=== PATIENT | female | born 1980 | race Caucasian/White ===

== ENCOUNTER → 2023-10-10 12:08 | Outpatient (CLI) | payer OTHER, MEDICAID, SELFPAY ==
--- NOTE | 2023-10-10 12:10 | DI.US.S_ITS ---
PROCEDURE: US PELVIC COMPLETE INDICATIONS: DUB TECHNIQUE: Real-time scanning was performed of the pelvic organs, with image documentation. Additional endovaginal scanning was necessary due to incomplete visualization of the adnexal and endometrial structures by transabdominal scanning. COMPARISON: None. FINDINGS: Uterus: Uterus is anteverted and normal in size at 11.3 x 7.4 x 4.3 cm. The myometrium is homogeneous. The endometrium measures 14 mm combined thickness. Arcuate uterine morphology. Ovaries: The right ovary measures 3.9 x 2.6 x 2.1 cm, with a calculated ovarian volume of 11.1 cc. Dominant right ovarian cyst measuring 1.5 cm. The left ovary measures 4.3 x 2.4 x 1.5 cm, with a calculated ovarian volume of 8.1 cc. The ovaries have a normal sonographic appearance. Less than 12 follicles can be seen in each ovary. No adnexal masses are seen. Other: No pathologic free abdominal or pelvic fluid. IMPRESSION: Arcuate uterine morphology. Normal appearance of the ovaries. We strive to produce accurate, complete, and clear reports of imaging services. To assist us in improving patient care, this report was composed using standard report templates and voice recognition software. Therefore, it may contain abnormal punctuation, insertions and/or omissions. Occasional wrong-word or sound-alike substitutions may occur. Though we review the report and make efforts to correct it, we do recommend that the report be read carefully in proper context to recognize any text inaccuracies. Dictated by: Wade Hudson M.D. on 10/10/2023 at 15:38 Approved by: Wade Hudson M.D. on 10/10/2023 at 15:40
== END ==
LOC: US 12:09
PROVIDERS: Referring Provider Obstetrics & Gynecology; Visit Provider Obstetrics & Gynecology
DX: N92.6 Irregular menstruation, unspecified (principal); Q51.810 Arcuate uterus
CPT/HCPCS: 76830; 76856

== ENCOUNTER 2023-12-29 08:04 | Day surgery (SDC) | payer OTHER, MEDICAID, SELFPAY ==
[2023-12-27 08:33] VITALS: BMI 33.4
[2023-12-29] VITALS (10 sets, daily range): BP systolic 107–153; BP diastolic 55–93; PULSE 69–88; RESP 12–18; TEMP 36.1–36.7; O2SAT 96–99; BMI 33.4
--- NOTE | 2023-12-29 | PATH_ITS ---
[facility] Accession Number: [id number] No. of containers..01 Tissue . 01 Material submitted: . uterus - UTERUS, CERVIX, FALLOPIAN TUBES AND OVARIES . 01 Diagnosis: UTERUS, CERVIX, AND FALLOPIAN TUBES, HYSTERECTOMY AND BILATERAL SALPINGECTOMY: Cervix: Nabothian cysts. Endometrium: Endometrial polyp and background secretory endometrium. Serosa: No significant pathologic abnormalities. Myometrium: No significant pathologic abnormalities. Fallopian tubes: No significant pathologic abnormaliies. [facility] 01/03/2024 1605 Local . 01 Comment: Jacquard Fixer sections of the endometrium are also reviewed by Dr. Anita Gardner, who concurs with the given interpretation. . 01 Electronically signed: . Clarita Khanna MD, Pathologist NPI- [id number] . 01 Gross description: . Received in formalin with two identifiers and uterus, cervix, and bilateral fallopian tubes, is an intact uterus (216 grams, 11.6 cm from superior to inferior, 8.2 cm from medial to lateral, 5.9 cm from anterior to posterior), with attached cervix (3.7 x 3.5 cm), and two unoriented, detached, fimbriated fallopian tubes (6.7 x 0.8 cm and 5.9 x 0.7 cm), with no additional adnexa. . The ectocervix is pink-olivo, smooth, and glistening with a patulous os measuring 0.7 cm in diameter. A long purple suture is located at approximately 10 o'clock with no designation per the requisition. The entire paracervical margin is inked blue, while the posterior paracervical margin is inked black. . The serosa is violaceous and smooth with no pinpoint hemorrhage identified. The endocervical canal measures 3.6 cm in length and has olivo herringbone mucosa. The endometrial cavity measures 3.3 cm from cornu to cornu, and 6.1 cm in length with pink-red, velvety endometrium that averages 0.1 cm thick with a polypoid nodule measuring 0.5 x 0.4 x 0.3 cm. . The myometrium is pink-olivo and trabecular measuring up to 2.4 cm in maximum thickness with no nodules or lesions identified. . Both tubes have violaceous, smooth serosa with no cysts identified, and sectioning reveals unremarkable stellate lumen. . Jacquard Fixer sections are submitted as follows: A1: Anterior cervix. A2: Posterior cervix. A3: Anterior full thickness section. A4: Posterior full thickness section. A5: Serosa. A6: Longer fallopian tube to include one-half of bisected fimbriae and cross-sections. A7: [place] fallopian tube to include one-half of bisected fimbriae and cross-sections. ([id number]) /GRETCHEN 12/30/2023 1004 Local . 01 Pathologist provided ICD-10: N92.0, N88.2 . 01 CPT . 848013 Specimen Comment: A courtesy copy of this report has been sent to [phone] Performed at: 01 [facility] [address] [place] [address], [place], [place] [id number] MD Chevy Blanco MD Phone: [phone]
[2023-12-29] MEDS: LACTATED RINGERS 1,000 ML 42 ML IV (08:38)
[2023-12-29] MEDS: ACETAMINOPHEN IV 1,000 MG/100 ML VIAL 400 MG IV (08:40)
[2023-12-29] MEDS: SCOPOLAMINE 1 PATCH TOP (08:41)
--- NOTE | 2023-12-29 10:13 | PM.PREOP ---
Pre-operative Note COVID-19 COVID-19 status: Not tested Interval Note History & Physical reviewed/Exam performed by Physician: Yes Changes to H&P: No
[2023-12-29 10:16] LABS: Hematocrit 33.9 % (36-46); Hemoglobin 10.6 g/dL (12.0-16.0); Mean Corpuscular HGB Conc 31.4 % (30-36); Mean Corpuscular Hemoglobin 23.4 PG (26-34); Mean Corpuscular Volume 74.7 fL (80-100); Platelet Count 392 X10^3/uL (150-400); Red Blood Cell Count 4.54 X10^6/uL (4.0-5.2); Red Cell Distribution Width 16.4 % (11.6-14.8); White Blood Cell Count 6.3 X10^3/uL (4.5-11.0)
[2023-12-29] MEDS: CEFAZOLIN VIAL 2 GM in SODIUM CHLORIDE 0.9% 100 ML IV (10:51)
--- NOTE | 2023-12-29 11:06 | SUR.OPER ---
Lithotomy on padded OR bed. Kenel Pad Positioner under torso. Head on pillow, arms padded and tucked at sides. Legs secured in padded yellow fins stirrups.
[2023-12-29] MEDS: BUPIVACAINE 0.5% (PF) 30 ML, EPINEPHrine 0.15 MG INJ (11:28)
--- NOTE | 2023-12-29 12:43 | P.OP_ITS ---
Operative Date/Time/Diagnoses Date of procedure: 12/29/23 Time of procedure: 11:05 Pre-op diagnosis: Menorrhagia Anemia due to chronic blood loss History of endometrial atypia Post-op diagnosis: same Procedure & Clinicians Procedure: Procedures Operation Date: 12/29/23 09:45 Actual Procedure Side Surgeon p Laparoscopic Total Hysterectomy with bilateral salpingectomy Not Applicable Nabeel Vieira MD Indications: Valerie is a 43-year-old 2 para 1, LMP 11/16/2023 who presents for evaluation of progressively severe menorrhagia in referral from Dr. Yamile Hines. Valerie experienced menarche at age 15 and has never had regular menses. Despite having irregular menses, she has conceived twice spontaneously and had 1 spontaneous vaginal . In 2019 however she underwent gastric sleeve surgery and after losing 100 lb or so her menses have become regular since then. Unfortunately while they are regular, they are extremely heavy with the least 5 days of flow in the 1st 1, 2 and sometimes 3 days are extremely heavy requiring both tampons and pads which sometimes have to be changed out as frequently as every 30-60 minutes. 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 She also takes in is much dietary iron as she can on a daily basis. Her most recent hemoglobin and hematocrit was not to the point where another iron infusion was required but was in the mildly anemic range. Patient in 2015 underwent hysteroscopy with polypectomy by Dr. Osei Roque. 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 Patient was subsequently placed on medroxyprogesterone by Dr. Roque and underwent endometrial sampling up until about 2018. All endometrial sampling was unremarkable but those records are not available for review at this time. She has not had repeat endometrial sampling since coming off medroxyprogesterone acetate in 2018 or 2019. Patient's most recent Pap was 2 months ago which was normal. She does have a history of having HPV in the past and underwent colp oscopy in 2004. Apparently she has had no further abnormals or treatment of her Paps since that time. Family history is notable for a maternal grandmother with colon cancer and a maternal cousin with breast cancer. Recent pelvic ultrasound performed 10/10/2023 at [facility] shows: FINDINGS: Uterus: Uterus is anteverted and normal in size at 11.3 x 7.4 x 4.3 cm. The myometrium is homogeneous. The endometrium measures 14 mm combined thickness. Arcuate uterine morphology. Ovaries: The right ovary measures 3.9 x 2.6 x 2.1 cm, with a calculated ovarian volume of 11.1 cc. Dominant right ovarian cyst measuring 1.5 cm. The left ovary measures 4.3 x 2.4 x 1.5 cm, with a calculated ovarian volume of 8.1 cc. The ovaries have a normal sonographic appearance. Less than 12 follicles can be seen in each ovary. No adnexal masses are seen. Other: No pathologic free abdominal or pelvic fluid. IMPRESSION: Arcuate uterine morphology. Normal appearance of the ovaries. We had an extended discussion regarding potential causes of her menorrhagia as well as various options for treatment/mitigation of her symptoms. Included in those possibilities was continuous oral contraceptives, insertion of a Mirena IUD, endometrial ablation, and hysterectomy. The patient is averse to oral contraceptive use as well as progestin secreting IUD. She is open to endometrial ablation but upon learning that no assurance can be made that amenorrhea will be achieved, would prefer very much to move forward with hysterectomy as this has been a longstanding problem and she is concerned that the mild abnormalities noted in 2016 may over time lead to endometrial cancer. Given her clinical history I concur with her decision to move forward with hysterectomy and she presents today for her scheduled procedure. Surgeon: Nabeel Vieira Anesthesia Type: General Operative Notes Findings: Upper limits normal size uterus. Normal-appearing fallopian tubes. Normal ovaries bilaterally. Both the anterior and posterior cul-de-sac free abnormalities or adhesions. There is slight prominence of the left ovarian veins. The upper abdomen and the remainder of the abdominal cavity are normal to laparoscopic inspection. Closure Type: primary Specimen(s): left tube, right tube and uterus Applied: catheter Estimated blood loss (mL): 75 Blood products transfused: none Procedure in detail: With the patient in modified dorsal lithotomy position preparations were made by prepping and draping the patient in usual manner for vaginal surgery and insertion of Lomax catheter. A pre-surgical time-out was then taken in accordance with [facility] Main OR policy. A bivalve speculum was then placed in the vagina and the cervix visualized. The anterior lip of the cervix was then grasped with a single-tooth tenaculum. The uterus was sounded to 9 cm, the endocervical canal dilated slightly, and a VCare uterine manipulator with a large colpotomy cup was placed. The umbilicus was then infiltrated with 0.5% Marcaine with epinephrine. A 1 cm umbilical incision was made transversely and a Veress needle was used to insufflate the abdominal cavity with carbon dioxide. Once the abdomen was appropriately insufflated, a 5 mm trocar and sleeve were then placed through the umbilical incision. The scope was placed through the trocar and the initial assessment of the intra-abdominal contents carried out. A 2nd and 3rd 5 mm port was then placed 1st in the right mid quadrant from then the left mid quadrant by infiltration of the skin and subcutaneous tissues, a 1 cm transverse incision and insertion of the 5 mm bladeless port. Using a 3 puncture technique, the abdomen and pelvis were inspected laparoscopy and photographically documented. Uterus is mobilized with the VCare manipulator and attention turned to the left adnexa. The distal tube was then grasped and the fimbria varicose divided after coagulation with the PowerSeal device. The dissection was then carried out toward the cornua and the fallopian tube amputated. The tube was removed through a 5 mm port and dissection was then carried down using the PowerSeal device so as to divide the utero-ovarian ligament and the round ligament with blunt and sharp dissection of the broad down to the level of the uterine artery. The uterine artery was then skeletonized after development of a bladder flap, coagulated, and divided. Once hemostasis was assured on the left side attention was turned to the right and the tube, utero-ovarian ligament, round ligament, and broad ligament were dissected in a fashion exactly the same as it had been on the left. The right uterine artery was then visualized after skeletonization and coagulated and divided. The uterus was seen to yessy after coagulation of both your arteries and the cup was identified through the vaginal muscularis at its insertion with the body of the cervix. Circumferential excision of the vaginal cup was accomplished without difficulty using monopolar current and the uterus mobilized. The uterus was then removed through the vagina and the vaginal cuff closed [id number] with a series of 0 Vicryl [id number] stitches. Hemostasis was excellent, the abdomen was re-insufflated, and the pelvis inspected laparoscopically. The pelvis was inspected for any abnormality or bleeding, and the ureters were each seen to be peristalsing freely. With complete hemostasis assured, the pneumoperitoneum was vented and the ports removed. All of the 5 mm ports were then closed with 4-0 Monocryl on the skin using inverted interrupted sutures. Skin glue was placed and after the glue was dried, an appropriate dressing was applied. The case was then terminated, the patient awakened, and then transferred to PACU after having tolerated the procedure well. Complications: none Post-operative Condition: stable Disposition: PACU Plan for aftercare: Recovery in ambulatory surgery in discharge home later today if pain is under control and she is tolerating oral intake well.
[2023-12-29] MEDS: OXYCODONE IR 5 MG TABLET PO ×4 (12:55→23:52)
[2023-12-29] MEDS: KETOROLAC 30 MG/ML VIAL IV ×2 (13:42→21:11)
[2023-12-29] MEDS: LACTATED RINGERS 1,000 ML 100 ML IV ×2 (13:42→23:53)
[2023-12-29] MEDS: ACETAMINOPHEN 325 MG TABLET 650 MG PO ×2 (17:30→23:52)
[2023-12-30] VITALS: BP 120/63; PULSE 83; RESP 17; TEMP 36.6; O2SAT 96
[2023-12-30] MEDS: KETOROLAC 30 MG/ML VIAL IV ×2 (01:15→06:28)
[2023-12-30] MEDS: OXYCODONE IR 5 MG TABLET PO ×2 (03:02→08:30)
[2023-12-30] MEDS: HYDROMORPHONE 1 MG INJ IV (04:20)
[2023-12-30 06:00] VITALS: BP 126/68; PULSE 78; RESP 17; TEMP 36.4; O2SAT 98
[2023-12-30 06:27] LABS: Add Manual Diff / Slide Review NO; Basophils Absolute Auto 0 /uL (0-100); Basophils Percent Auto 0.4 % (0-2); Eosinophils Absolute Auto 0 /uL (0-450); Eosinophils Percent Auto 0.1 % (2-4); Hemoglobin 9.2 g/dL (12.0-16.0); Lymphocytes Absolute Auto 1700 /uL (1100-4500); Lymphocytes Percent Auto 14.3 % (25-40); Mean Corpuscular HGB Conc 30.6 % (30-36); Monocytes Absolute Auto 1300 /uL (0-900); Monocytes Percent Auto 11.1 % (3-14); Neutrophils Absolute Auto 8900 /uL (1500-7000); Neutrophils Percent Auto 74.1 % (50-75); Platelet Count 334 X10^3/uL (150-400); Red Cell Distribution Width 16.7 % (11.6-14.8)
[2023-12-30] MEDS: ACETAMINOPHEN 325 MG TABLET 650 MG PO (06:28)
[2023-12-30 08:07] VITALS: BP 141/79; PULSE 73; RESP 18; TEMP 36.6; O2SAT 96
[2023-12-30] MEDS: SERTRALINE 50 MG TABLET 100 MG PO (08:30)
--- NOTE | 2023-12-30 10:26 | P.DS_ITS ---
History of Present Illness History of Present Illness Date Patient Seen: 12/30/23 Time Patient Seen: 09:46 Chief complaint: Total lap hysterectomy w/tabitha salpingectomy *OPB* Narrative: Valerie is a 43-year-old 2 para 1, LMP 11/16/2023 who presents for evaluation of progressively severe menorrhagia in referral from Dr. Yamile Hines. Valerie experienced menarche at age 15 and has never had regular menses. Despite having irregular menses, she has conceived twice spontaneously and had 1 spontaneous vaginal . In 2019 however she underwent gastric sleeve surgery and after losing 100 lb or so her menses have become regular since then. Unfortunately while they are regular, they are extremely heavy with the least 5 days of flow in the 1st 1, 2 and sometimes 3 days are extremely heavy requiring both tampons and pads which sometimes have to be changed out as frequently as every 30-60 minutes. 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 She also takes in is much dietary iron as she can on a daily basis. Her most recent hemoglobin and hematocrit was not to the point where another iron infusion was required but was in the mildly anemic range. Patient in 2015 underwent hysteroscopy with polypectomy by Dr. Osei Roque. 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 Patient was subsequently placed on medroxyprogesterone by Dr. Roque and underwent endometrial sampling up until about 2018. All endometrial sampling was unremarkable but those records are not available for review at this time. She has not had repeat endometrial sampling since coming off medroxyprogesterone acetate in 2018 or 2019. Patient's most recent Pap was 2 months ago which was normal. She does have a history of having HPV in the past and underwent colposcopy in 2004. Apparently she has had no further abnormals or treatment of her Paps since that time. Family history is notable for a maternal grandmother with colon cancer and a maternal cousin with breast cancer. Recent pelvic ultrasound performed 10/10/2023 at [facility] shows: FINDINGS: Uterus: Uterus is anteverted and normal in size at 11.3 x 7.4 x 4.3 cm. The myometrium is homogeneous. The endometrium measures 14 mm combined thickness. Arcuate uterine morphology. Ovaries: The right ovary measures 3.9 x 2.6 x 2.1 cm, with a calculated ovarian volume of 11.1 cc. Dominant right ovarian cyst measuring 1.5 cm. The left ovary measures 4.3 x 2.4 x 1.5 cm, with a calculated ovarian volume of 8.1 cc. The ovaries have a normal sonographic appearance. Less than 12 follicles can be seen in each ovary. No adnexal masses are seen. Other: No pathologic free abdominal or pelvic fluid. IMPRESSION: Arcuate uterine morphology. Normal appearance of the ovaries. We had an extended discussion regarding potential causes of her menorrhagia as well as various options for treatment/mitigation of her symptoms. Included in those possibilities was continuous oral contraceptives, insertion of a Mirena IUD, endometrial ablation, and hysterectomy. The patient is averse to oral contraceptive use as well as progestin secreting IUD. She is open to endometrial ablation but upon learning that no assurance can be made that amenorrhea will be achieved, would prefer very much to move forward with hysterectomy as this has been a longstanding problem and she is concerned that the mild abnormalities noted in 2016 may over time lead to endometrial cancer. Given her clinical history I concur with her decision to move forward with hysterectomy and she presents today for her scheduled procedure. Discharge Providers Provider Date of admission: 12/29/2023 Discharge Date: 12/30/23 Discharge provider: Nabeel Vieira MD Summary Hospital Course Discharge Diagnosis: Intractable menometrorrhagia Anemia due to chronic blood loss History of endometrial atypia Hospital Course: On 12/29/2023, Valerie was admitted for scheduled total laparoscopic hysterectomy with bilateral salpingectomy. She underwent that uneventful procedure on 12/29/2023 with full details of the procedure well summarized on my operative note of that date. Following her surgery, the patient has done extremely well with prompt return of bowel and bladder function, she is ambulating independently, tolerating regular diet, and her pain is well controlled with oral pain medications. She will be discharged at this time to home in an afebrile normotensive condition after counseling regarding precautionary symptoms, limitations of activity, medications, and plans for follow-up which will be in 2 weeks. Medications at discharge will include resumption of all preadmission medications as well as oxycodone 5 mg p.o. q.6 hours as needed for pain, dispense 20 with no refills, and Cipro 500 mg p.o. b.i.d. x5 days for UTI prophylaxis following catheterization. Status at Discharge Cognitive/behavioral status at discharge: oriented Functional status at discharge: independent ambulation Overall status at discharge: patient is progressing back to baseline Time Spent with Patient Time spent: Less than 30 minutes Exam Vital Signs (past 8 hours): - 12/30/23 06:00 12/30/23 08:07 Temperature 97.6 F 97.8 F Pulse Rate 78 73 Respiratory Rate 17 18 Blood Pressure 126/68 141/79 H Pulse Oximetry 98 96 Oxygen Flow Rate 0 0 Oxygen Delivery Method Room Air Oxygen Flow Rate 0 Const General: cooperative and comfortable Nutritional Appearance: average body habitus Orientation: alert and oriented x3 HENMT Head: normal to inspection, atraumatic and abrasion Ears: hearing grossly normal bilaterally Face and sinus: face symmetric Eyes General: appearance normal, both eyes and all related structures Conjunctivae: conjunctivae normal Sclera: sclerae normal EOM: EOM intact bilaterally Neck Neck: normal visual inspection Resp Effort & Inspection: normal respiratory effort and able to speak in complete sentences Auscultation: clear to auscultation bilaterally Cardio Rate: regular rate Rhythm: regular rhythm Heart Sounds: S1 normal, S2 normal and no murmurs GI Inspection: normal to inspection and incision (Surgical dressings clean and dry) Palpation: soft, no hepatosplenomegaly and tender (Mild, diffuse postsurgical tenderness) External Female Exam: other (No significant bleeding noted) Extrem General: no calf tenderness Psych Appearance: grossly normal Mental Status: mental status grossly normal Speech and Movement: speech and movement normal Mood: congruent mood Affect: normal affect Attitude: cooperative Thought Process: normal Thought Content: normal Judgment: judgment good Objective Labs 12/30/23 05:30 Labs: Laboratory Results - last 24 hr 12/30/23 05:30 WBC 12.0 H D RBC 4.00 Hgb 9.2 L Hct 30.0 L MCV 75.0 L MCH 23.0 L MCHC 30.6 RDW 16.7 H Plt Count 334 Neut % (Auto) 74.1 Lymph % (Auto) 14.3 L [place] % (Auto) 11.1 Eos % (Auto) 0.1 L Baso % (Auto) 0.4 Neut # (Auto) 8900 H Lymph # (Auto) 1700 [place] # (Auto) 1300 H Eos # (Auto) 0 Baso # (Auto) 0 PFSH Medical History (Updated 12/27/23 @ 08:51 by Ronna Arroyo RN) Iron deficiency anemia (2019) Human papilloma virus (~2003) Anemia due to blood loss, chronic (~2019) Surgical History (Updated 12/27/23 @ 08:51 by Ronna Arroyo RN) Status post hysteroscopic polypectomy History of colposcopy (2003) Anesthesia Status post breast reduction (~06/2023) History of abdominoplasty (~01/2023) History of cholecystectomy (~05/2020) H/O gastric sleeve (~07/2019) Family History (Updated 12/09/23 @ 20:57 by Mariya Lorenzo) Father Diabetes mellitus History of heart disease Hyperlipidemia Hypertension Grandmother Cancer Social History household members: spouse Smoking Status: Former smoker alcohol intake: current Discharge Assessment & Plan Assessment and Plan Assessment: Intractable menometrorrhagia Anemia due to chronic blood loss History of endometrial atypia Status post total laparoscopic hysterectomy with bilateral salpingectomy Plan of Treatment: Routine postoperative care with plans for follow-up in 2 weeks. Discharge Plan Discharge Plan Patient Disposition: Home Provider Discharge Comment: Please review the written instructions you received when you were discharged from the hospital. Your follow-up appointment will be scheduled for 2 weeks after your surgery and I look forward to seeing you then. If however in the meanwhile you have any questions, concerns, problems, please contact me either through the office phone at [phone], or via the patient portal. Discharge orders & Medications Discharge Orders: Discharge (Order); Ordered 12/30/23 Ordered By: Nabeel Vieira Prescriptions: New oxycodone 5 mg Tablet 5 mg PO Q4HR PRN (Reason: Pain, Moderate (4-6)) Qty: 20 0RF ciprofloxacin HCl [Cipro] 500 mg tablet 500 mg PO Q12H 5 Days Qty: 10 0RF Continued sertraline 100 mg tablet 100 mg PO DAILY Follow up/Referrals: Nabeel Vieira MD [Physician] - Diet/Activity/Treatments Diet: Diet as Tolerated Activity: As tolerated Other treatments: Edhj-bbs-exleiig ibuprofen and/or Tylenol may be used as needed for additional pain relief. Nnln-wdk-snsewoz stool softeners and/or MiraLax may be used as needed for constipation. Skin/Wound/Dressing Care Report to your healthcare provider any signs of infection, such as:: chills, fever, increased pain, unusual drainage and unusual redness Visit Report/Discharge Packet Instructions: DI for Hysterectomy, DI for Laparoscopy, DI for Prescription Opioid Use Stand Alone Forms: Surgery Discharge Print Language: Guatemalan Discharge Data Attending Provider: Nabeel Vieira VTE Deep Vein Thrombosis/Pulmonary Embolism Present on Admission: No
--- NOTE | 2023-12-30 11:47 | PC.NURSE ---
Pt discharged home at 1105, escorted off floor in wheelchair accompanied by family and hospital staff. IV removed, discharge teaching completed including wound care, follow up appointments and new medications. Questions and concerns addressed. Patient left the room with all belongings.
--- NOTE | 2023-12-30 12:48 | CM.DANOTE ---
Discharge Planning/Care Management CM Discharge Assessment Start: 12/30/23 12:41 Freq: Status: Active Protocol: Document 12/30/23 12:42 [facility] (Rec: 12/30/23 12:48 [id number]) Discharge Planning Assessment Assigned Pipe Fitter Ammonia LONI Jones DPTEJAS/Assigned Designee Name Pablito Gibbs, spouse Contact Information [phone] Advance Directives? No History Provided By Patient,Medical Record Prior Living Arrangements House Household Members spouse Type of transporation used prior to Drives own vehicle admit Independent with ADL's Yes Is patient alert and oriented? Yes Barriers to Discharge No Comment POD1 from lap hysterectomy w/ tabitha salpingectomy. Patient planned to return w/family to assist and provider cleared her for this plan. Discharge Plan Home Transportation Arrangement Family Referrals Initiated None needed
== END 2023-12-30 12:01 | disposition home or self-care (01) ==
LOC: OR 08:05 → AC 08:06
PROVIDERS: Anesthesiology; Referring Provider Obstetrics & Gynecology; Visit Provider Obstetrics & Gynecology
PROC: 0UT94ZZ Resection of Uterus, Percutaneous Endoscopic Approach (ICD-10-PCS; CPT 58571; principal; 2023-12-29 09:45)
DX: N92.0 Excessive and frequent menstruation with regular cycle (principal); D50.0 Iron deficiency anemia secondary to blood loss (chronic); N88.2 Stricture and stenosis of cervix uteri; N88.8 Other specified noninflammatory disorders of cervix uteri; N84.1 Polyp of cervix uteri; N84.0 Polyp of corpus uteri
CPT/HCPCS: 58571; 36415; 85025; 85027; J0136; J0171; J0690; J1100; J1170; J1885; J2250; J2405; J2704; J3010